=== PATIENT | male | born 1975 | race Caucasian/White ===

== ENCOUNTER → 2017-09-20 | Outpatient (CLI) | payer OTHER ==
[~2017-09-20] MED LIST: INDOCIN50 MG PO; KEFLEX500 MG PO; MEDROL DOSEPAK4 MG PO; PERCOCET 325 MG1 TA7 PO
== END | disposition home or self-care (01) ==
LOC: RAD 15:04
DX: M25.511 Pain in right shoulder (principal); M54.2 Cervicalgia

== ENCOUNTER → 2017-10-09 | Outpatient (CLI) | payer OTHER | END | disposition home or self-care (01) | LOC: MRI 10-08 14:00 | DX: S46.811A Strain of other muscles, fascia and tendons at shoulder and upper arm level, right arm, initial encounter (principal); X58.XXXA Exposure to other specified factors, initial encounter; Y93.89 Activity, other specified; Y92.89 Other specified places as the place of occurrence of the external cause; Y99.8 Other external cause status ==

== ENCOUNTER → 2017-11-14 | Outpatient (CLI) | payer OTHER | END | disposition home or self-care (01) | LOC: EDSTATUS 11-12 13:00 | DX: M25.511 Pain in right shoulder (principal); S46.811A Strain of other muscles, fascia and tendons at shoulder and upper arm level, right arm, initial encounter; M75.81 Other shoulder lesions, right shoulder ==

== ENCOUNTER → 2018-02-12 | Outpatient (CLI) | payer OTHER | END | disposition home or self-care (01) | LOC: RAD 02-11 22:23 | DX: M54.2 Cervicalgia (principal) ==

== ENCOUNTER → 2018-02-26 | Outpatient (CLI) | payer OTHER | END | disposition home or self-care (01) | LOC: MRI 08:28 | DX: M48.02 Spinal stenosis, cervical region (principal) ==

== ENCOUNTER → 2018-12-29 | Outpatient (CLI) | payer OTHER | END | disposition home or self-care (01) | LOC: RAD 22:43 | DX: M54.32 Sciatica, left side (principal) ==

== ENCOUNTER 2020-09-05 14:45 | Emergency (ER) | payer OTHER ==
[~2020-09-05] VITALS: Ht 177.8 cm; Wt 102.1 kg
[2020-09-05] MEDS ORDERED: PREDNISONE20 M1 PO (15:27)
[2020-09-05] MEDS ORDERED: PROVENTIL HFA6.7 GM INH (15:27)
== END 2020-09-05 16:06 | disposition home or self-care (01) ==
LOC: ED 14:45
DX: R68.83 Chills (without fever) (principal); Z20.828 Contact with and (suspected) exposure to other viral communicable diseases

== ENCOUNTER → 2022-03-30 | Day surgery (SDC) | payer OTHER ==
[~2022-03-30] VITALS: Ht 177.8 cm; Wt 95.3 kg
[~2022-03-30] MED LIST changes: +NAPROSYN500 MG PO; +ORPHENADRINE C100 M1 PO; +PREDNISONE20 M1 PO; +PROTONIX40 MG PO; +PROVENTIL HFA6.7 GM INH; +ZESTRIL10 MG PO
[2022-03-30 09:56] VITALS: BP 123/80
[2022-03-30 12:35] VITALS: BP 92/59
[2022-03-30 12:50] VITALS: BP 91/59
[2022-03-30 13:04] VITALS: BP 92/60
== END | disposition home or self-care (01) ==
LOC: SDC 03-27 10:15
PROVIDERS: ATTEND Surgery
DX: Z12.11 Encounter for screening for malignant neoplasm of colon (principal); K21.00 Gastro-esophageal reflux disease with esophagitis, without bleeding; I10 Essential (primary) hypertension; M19.90 Unspecified osteoarthritis, unspecified site; K29.70 Gastritis, unspecified, without bleeding; K92.0 Hematemesis; Z79.899 Other long term (current) drug therapy; Z98.890 Other specified postprocedural states

== ENCOUNTER → 2024-12-18 | Outpatient (CLI) | payer OTHER | END | disposition home or self-care (01) | LOC: RESCLI 01:52 | PROVIDERS: ATTEND Internal Medicine | DX: R63.5 Abnormal weight gain (principal); I10 Essential (primary) hypertension; K21.00 Gastro-esophageal reflux disease with esophagitis, without bleeding; M54.9 Dorsalgia, unspecified; G47.33 Obstructive sleep apnea (adult) (pediatric); G47.26 Circadian rhythm sleep disorder, shift work type; Z78.9 Other specified health status; Z79.899 Other long term (current) drug therapy; Z98.890 Other specified postprocedural states; Z88.8 Allergy status to other drugs, medicaments and biological substances ==